=== PATIENT | male | born 1985 | race Caucasian/White ===

== ENCOUNTER 2024-08-24 14:29 | Emergency (ER) | payer OTHER ==
[~2024-08-24] VITALS: Ht 182.9 cm; Wt 108.9 kg
[~2024-08-24 14:29] MED LIST: AMOX500 PO; AMPDEX30CR; HYDACE5 PO
[2024-08-24] MEDS ORDERED: Diphth,Pertuss(Acell),Tet Vac 0.5 ML VIAL IM ONE (14:50)
[2024-08-24] MEDS ORDERED: HYDROcodone 5-APAP 325 TAB PO ONE (14:55)
[2024-08-24] MEDS ORDERED: Percocet 5-3251 EACH PO (15:58)
== END 2024-08-24 16:00 | disposition home or self-care (01) ==
LOC: ER 14:29
DX: S42.002A Fracture of unspecified part of left clavicle, initial encounter for closed fracture (principal); S20.212A Contusion of left front wall of thorax, initial encounter; S00.81XA Abrasion of other part of head, initial encounter; S50.812A Abrasion of left forearm, initial encounter; S50.312A Abrasion of left elbow, initial encounter; S40.212A Abrasion of left shoulder, initial encounter; V86.56XA Driver of dirt bike or motor/cross bike injured in nontraffic accident, initial encounter
CPT/HCPCS: 71101; 73000; 73090; 90471; 90715; 99283-25; A9270